=== PATIENT | male | born 1930 | race Caucasian/White ===

== ENCOUNTER 2019-01-18 02:14 | Inpatient (IN) | payer OTHER, MEDICARE ==
[~2019-01-18] VITALS: Ht 180.3 cm; Wt 77.6 kg
[2019-01-18] VITALS (12 sets, daily range): BP systolic 88–147; BP diastolic 54–78; Ht 180.3 cm; Wt 77.6 kg
--- NOTE | ~2019-01-18 | HEMODYNAMI ---
PATIENT:ARISTEO ACOSTA MEDICAL RECORD: [id number] : 34 [facility] ADMISSION DATE: 01/18/19 Generatedon:01/19/20199:36 Patient name: ARISTEO ACOSTA Patient #: [id number] SSN: : 1930 Date of study: 01/19/2019 Page: Of Hemodynamic Procedure Report Patient Data Patient Demographics Procedure consent was obtained First Name: ARISTEO Gender: Male Last Name: DAVE : 1930 [facility] Initial: NATHAN Age: 88 year(s) Patient #: [id number] Race: Unknown Additional ID: [id number] Contact details [address]: [address] [place] [address] State: [place] City: [place] Zip code: [address] Past Medical History Allergies Allergen Reaction Date Comments Reported Other allergy 01/19/2019 amiodorone Admission Admission Data Admission Date: 01/18/2019 Admission Time: 3:53 Admit Source: Emergency department Room #: D.2118 Lab Results Lab Result Date: 01/19/2019 Lab Result Time: 4:43 Biochemistry Name Units Result Min Max BUN mg/dl 32 --(----)-* 7 18 Creatinine mg/dl 1.3 --(---*)-- 0.6 1.3 CBC Name Units Result Min Max Hematocrit % 32.2 *-(----)-- 42 54 Hemoglobin g/dl 10.7 *-(----)-- 13.5 17.5 Procedure Procedure Types Cath Procedure Diagnostic Procedure LHC Coronaries only Procedure Description Procedure Date Procedure Date: 01/19/2019 Procedure Start Time: 9:20 Procedure End Time: 9:35 Procedure Staff Name Function Tristen Perez MD Performing Physician García Espino RT Monitor Marcella Rosales RT Scrub Bassem Rudolph RN Nurse Procedure Data Cath Procedure Fluoroscopy Diagnostic fluoroscopy Total fluoroscopy Time: 4 time: 4 min min Diagnostic fluoroscopy Total fluoroscopy dose: 568 dose: 568 mGy mGy Contrast Material Contrast Material Type Amount (ml) Isovue 300 72 Entry Location Entry Primary Successful Side Size Upsize Upsize Entry Closure Succes sful Closure Location (Fr) 1 (Fr) 2 (Fr) Remarks Device Remarks Femoral Right 5 Fr Exoseal artery Estimated blood loss: 5 ml Diagnostic catheters Device Type Used For End Catheter Placement MULTIPACK JL 4.0 5Fr Procedure catheter DIAGNOSTIC JL 5 5Fr Procedure catheter ([id number]) MULTIPACK 3DRC 5Fr Procedure catheter MULTIPACK Pigtail 5 Fr Procedure catheter Procedure Complications No complications Procedure Medications Medication Administration Route Dosage 0.9% NaCl I.V. 100 ml/hr Oxygen etCO2 Nasal cannula 2 l/min Heparin Flush Bag added to field 2 bags (1000units/500ml NS) Lidocaine 2% added to field 20 Versed I.V. 1 mg Fentanyl I.V. 50 mcg Hemodynamics Rest HGB: 10.7 (g/dl) Heart Rate: 56 (bpm) Snapshots Pre Cath Intra NCS Post Cath Vital Signs Time Heart Resp SPO2 etCO2 NIBP (mmHg) Rhythm Pain Sedation Rate (ipm) (%) (mmHg) Status Level (bpm) 9:03:19 103 28 94 0 134/76(120) A-Fib 0 (11) 10(A) , No pain 9:07:25 106 22 96 23 143/106(121) A-Fib 0 (11) 10(A) , No pain 9:11:36 118 19 94 17.1 126/99(110) A-Fib 0 (11) 10(A) , No pain 9:15:50 100 23 96 20.8 105/70(97) A-Fib 0 (11) 10(A) , No pain 9:19:52 111 33 96 0 122/85(114) A-Fib 0 (11) 10(A) , No pain 9:23:56 97 18 96 0 112/83(107) A-Fib 0 (11) 9(A) , No pain 9:27:58 119 19 96 20.8 115/94(112) A-Fib 0 (11) 9(A) , No pain 9:32:05 98 18 96 18.6 135/79(121) A-Fib 0 (11) 9(A) , No pain Medications Time Medication Route Dose Verified Delivered Reason Notes Effe ctiveness by by 9:08:30 0.9% NaCl I.V. 100 Bassem Bassem Per ml/hr Ronni Rudolph physician RN RN 9:08:41 Oxygen etCO2 2 Bassem Bassem for low 02 Nasal l/min Lorigan Lorigan sats cannula RN RN 9:08:52 Heparin Flush added 2 Bassem Bassem used for Bag to bags Lorigan Ronni procedure (1000units/500ml field RN RN NS) 9:09:02 Lidocaine 2% added 20ml Bassem Bassem for local to vial Lorigan Lorigan anesthetic field RN RN 9:18:01 Versed I.V. 1 mg Bassem Bassem for Lorigan Lorigan sedation RN RN 9:18:09 Fentanyl I.V. 50 Bassem Bassem for mcg Lorigan Lorigan sedation RN video control engineer Log Time Note 8:42:54 Informed consent obtained and on chart 8:42:57 Admit Source: Emergency department 8:43:09 Diagnostic Cath status Urgent 8:43:10 Time tracking: Regular hours (M-F 7:00 - 5:00) 8:43:14 Plan of Care:Hemodynamics will remain stable., Cardiac rhythm will remain stable., Comfort level will be maintained., Respiratory function will remain adequate., Patient/ family verbilizes understanding of procedure., Procedure tolerated without complication., Recovers from procedure without complications.. 8:43:46 H&P Date Dictated: 01/19/2019 Within 30 days and on chart.. 8:45:31 Bassem Rudolph RN sent for patient. Start room use. 8:54:31 Patient received from Med II to CCL 1 Alert and oriented. Tansferred to table in Supine position. 8:54:32 Warm blankets applied, and caleb hugger turned on for patient comfort. 8:54:33 Correct patient and procedure confirmed by team. 8:54:34 ECG and BP/O2 sat monitors applied to patient. 8:54:35 Pre-procedure instructions explained to patient. 8:54:35 Pre-op teaching completed and patient verbalized understanding. 8:54:37 Family in patients room. 8:54:38 Patient NPO since Midnight. 9:02:06 Vital chart was started 9:02:16 Full Disclosure recording started 9:08:30 0.9% NaCl 100 ml/hr I.V. was administered by Bassem Lorigan RN; Per physician; 9:08:41 Oxygen 2 l/min etCO2 Nasal cannula was administered by Bassem Rudolph RN; for low 02 sats; 9:08:52 Heparin Flush Bag (1000units/500ml NS) 2 bags added to field was administered by Bassem Rudolph RN; used for procedure; 9:09:02 Lidocaine 2% 20ml vial added to field was administered by Bassem Rudolph RN; for local anesthetic; 9:12:48 Baseline sample Acquired. 9:13:07 Rhythm: sinus rhythm , paced 9:13:20 Patient allergic to Other allergyamiodorone 9:13:22 Is the patient allergic to Iodine/contrast media? No. 9:13:29 Is patient on blood thinner?No 9:13:29 Patient diabetic? No. 9:13:32 Previous problem with sedation/anesthesia? No ? 9:13:33 Snore? Yes 9:13:34 Sleep apnea? Yes 9:13:35 Deviated septum? No 9:13:35 Opens mouth fully? Yes 9:13:36 Sticks out tongue? Yes 9:13:46 Airway obstruction? Yes Asthma/COPD 9:13:52 Dentures? Yes upper and lower in tight 9:13:58 Pre procedure: right posterior tibial pulse 1+ Palpable, but thready & weak; easily obliterated 9:14:16 Patient pain scale 0/10 ?. 9:14:23 IV patent on arrival in right antecubital with 0.9% NaCl at O. 9:14:59 Lab Result : BUN 32 mg/dl 9:14:59 Lab Result : Creatinine 1.3 mg/dl 9:14:59 Lab Result : Hemoglobin 10.7 g/dl 9:14:59 Lab Result : Hematocrit 32.2 % 9:16:17 Lab results completed and on chart. 9:16:20 Right groin area was prepped with chlora-prep and draped in sterile fashion 9:16:21 Alarms reviewed by R. N. 9:16:21 Sharps counted by scrub and verified by R.N. 9:16:24 Use device set Femoral Dx 9:16:24 ACIST Syringe (06053) opened to sterile field. 9:16:25 Bag Decanter (2002S) opened to sterile field. 9:16:25 Medline Cath Pack ([id number]) opened to sterile field. 9:16:26 ACIST Hand Control (60853) opened to sterile field. 9:16:27 ACIST Manifold (60238) opened to sterile field. 9:16:27 DIAGNOSTIC Multipack 5Fr catheter set ([id number]) opened to sterile field. 9:16:28 Tegaderm 4 x 4 (1626W) opened to sterile field. 9:16:29 SHEATH 5FR Humble (AJS359) opened to sterile field. 9:16:30 DIAGNOSTIC WIRE .035 260cm J wire (542980) opened to sterile field. 9:16:35 Physician arrived 9:16:35 --------ALL STOP TIME OUT------ 9:16:36 Final Timeout: patient, procedure, and site verified with staff and physician. All members of the team are in agreement. 9:16:37 Right groin site verified by team. 9:16:39 Maximum allowable Isovue 300 dose 300ml. Physician notified. (300ml for normal creatinines. For patients with creatinine of 1.7 or higher multiply weight(kg) x 5 divided by creatinine.) 9:16:42 Fire Safety Assessment: A--An alcohol-based skin anteseptic being used preoperatively., C--Open oxygen or nitrous oxide is being used., D--An ESU, laser, or fiber-optic light is being used. 9:16:45 Physical assessment completed. ASA score P 3 - A patient with severe systemic disease as per Tristen Perez MD. 9:16:47 Sedation plan: IV Moderate Sedation Medication:Versed, Fentanyl 9:18:01 Versed 1 mg I.V. was administered by Bassem Rudolph RN; for sedation; 9:18:09 Fentanyl 50 mcg I.V. was administered by Bassem Rudolph RN; for sedation; 9:20:02 Procedure started. 9:20:05 Local anesthetic to right femoral artery with Lidocaine 2% by Tristen Perez MD.INITIAL ACCESS ONLY 9:20:12 A 5 Fr sheath was inserted into the Right Femoral artery 9:22:03 A MULTIPACK JL 4.0 5Fr catheter was advanced over the wire and used for Procedure. 9:22:11 Catheter removed. unable to cannulate vessel. 9:22:19 A DIAGNOSTIC JL 5 5Fr catheter ([id number]) was advanced over the wire and used for Procedure. 9:22:46 Zero performed for pressure channel P1 9:24:15 LCA angiography performed. 9:27:00 Catheter exchanged over wire. 9:27:05 A MULTIPACK 3DRC 5Fr catheter was advanced over the wire and used for Procedure. 9:27:09 RCA angiography performed. 9:28:15 Catheter exchanged over wire. 9:28:20 A MULTIPACK Pigtail 5 Fr catheter was advanced over the wire and used for Procedure. 9:29:35 catheter removed, unable to cross valve. 9:29:36 Catheter removed. 9:29:38 EXOSEAL 5Fr (EX500) opened to sterile field. 9::46 Sheath removed intact; hemostasis achieved with Exoseal to the Right Femoral artery. 9:29:47 Procedure ended.(Physican Out) 9:31:26 Fluoroscopy time 04.00 minutes. 9:31:32 Flurop Dose total: 568 9:31:32 Fluoroscopy dose: 568 mGy 9:31:47 Contrast amount:Isovue 300 72ml. 9:31:48 Sharps counted by scrub and verified by R.N. 9:31:58 Insertion/operative site no bleeding no hematoma. 9:32:01 Post-op/insertion site Right Femoral artery dressed using a 4 x 4 and Tegaderm. 9:32:04 Post right femoral artery:stable, soft, clean and dry 9:33:26 Post Procedure Pulses reassessed and unchanged 9:33:36 Post-procedure physical assessment completed. ASA score P 3 - A patient with severe systemic disease as per Tristen Perez MD. 9:33:48 Post procedure rhythm: unchanged. 9:33:55 Estimated blood loss: 5 ml 9:33:56 Post procedure instruction explained to patient.Patient verbalizes understanding. 9:33:57 Patient needs reinforcement of post procedure teaching. 9:34:39 Procedure type changed to Cath procedure, Diagnostic procedure, LHC, Coronaries only 9:34:51 Procedure and supply charges have been captured, reviewed, submitted and are correct. 9:34:56 Procedure Complication : No complications 9:34:57 Vital chart was stopped 9:34:58 See physician's report for complete and final results. 9:34:59 Report given to PCU. 9:35:02 Patient transfered to PCU with Stretcher. 9:35:05 Procedure ended. 9:35:05 Full Disclosure recording stopped 9:35:07 End room use (Document Last) Device Usage Item Name Manufacture Quantity Catalog Hospital Part Current Minimal L ot# / Number Charge Number Stock Stock Serial# Code ACIST Acist 1 94987 [id number] 331518 869852 20 Syringe Medical (27230) Systems Inc Bag Microtek 1 652157 53548 080088 5 Decanter Medical Inc. () Medline Medline 1 [id number] 972683 35081 412880 5 Cath Pack ([id number]) ACIST Hand Acist 1 99732 767030 568416 847004 5 Control Medical (72949) Systems Inc ACIST Acist 1 41972 185437 044250 608599 5 Manifold Medical (20986) Systems Inc DIAGNOSTIC Cardinal 1 [id number] 295129 67434 443354 30 Multipack Health 5Fr catheter set (AL7922) Tegaderm 4 3M 1 1626W 388407 376277 363832 5 x 4 (1626W) SHEATH 5FR Terumo 1 [id number] 182957 076778 627504 5 Humble (DWV424) DIAGNOSTIC [facility] 1 993409 322234 621620 231180 30 WIRE .035 260cm J wire (787531) MULTIPACK Cardinal 1 867587 5 JL 4.0 5Fr Health catheter DIAGNOSTIC Cardinal 1 [id number] 015747 382652 490430 5 JL 5 5Fr Health catheter (465027X) MULTIPACK Cardinal 1 837995 5 3DRC 5Fr Health catheter MULTIPACK Cardinal 1 999907 5 Pigtail 5 Health Fr catheter EXOSEAL 5Fr Cardinal 1 EX500 740848 548665 068273 10 (EX500) Health Signature Audit [place] Stage Time Signature Unsigned Intra-Procedure 01/19/2019 García Espino 9:36:09 AM RT(R) Signatures Monitor : García Espino RT Signature : Date : Time : [facility] [address] [place], [place] [id number]
[2019-01-18] MEDS ORDERED: ASPIRIN EC81 M1 PO (02:49)
[2019-01-18] MEDS ORDERED: FLUTICASONE PRO16 GM NASAL (02:51)
[2019-01-18] MEDS ORDERED: LANOXIN125 MCG PO (02:51)
[2019-01-18] MEDS ORDERED: JANTOVEN4 MG PO (02:52)
[2019-01-18] MEDS ORDERED: ZOCOR20 MG PO (02:53)
[2019-01-18] MEDS ORDERED: LASIX40 MG PO (02:53)
[2019-01-18] MEDS ORDERED: ALDACTONE25 MG PO (02:54)
[2019-01-18] MEDS ORDERED: HYTRIN5 MG PO (02:55)
--- NOTE | 2019-01-18 03:00 | NUR ---
REPORT FROM TUSHAR ZAIDI
--- NOTE | 2019-01-18 03:05 | NUR ---
PT VERY UNCOMFORTABLE THIS TIME PT UNABLE TO SIT OR STAND PT STATES THAT HE IS ATTEMPTING TO URINATE INTO URINAL PT HAS URINATED 60ML CLEAR URINE AT THIS TIME PT STATES HE WAS GIVEN LASIX AND HASNT BEEN ABLE TO URINATE FULLY. MD AWARE. PT STATES HE NEEDS TO HAVE BOWEL MOVEMENT ALSO. PT HELPED TO BATHROOM ABLE TO AMBULATE WITHOUT ASSISTANCE PT HAD LARGE BM WITH BROWN STOOL. PT SOMEWHAT RELIEVED AT THIS TIME STATES THAT HE STILL CANT URINATE. PT ABLE LAY DOWN ON BED AT THIS TIME.
--- NOTE | 2019-01-18 03:30 | NUR ---
PT FEELING MUCH BETTER AT THIS TIME. PT GIVEN BLANKETS AT THIS TIME. PT DENIES FUTHER COMPLAINTS.
[2019-01-18 04:20] LABS: CREATINE KINASE 712 UL (21-232)
[2019-01-18 04:21] LABS: TROPONIN-I 18.638 ng/mL (0.000-0.060)
[2019-01-18 04:38] LABS: HEMATOCRIT 38.1 % (42.0-54.0); HEMOGLOBIN 12.7 g/dL (13.5-17.5); MCH 31.9 pg (26.0-34.0); MCHC 33.3 g/dL (31.0-37.0); MCV 95.7 fL (80.0-100.0); MEAN PLATELET VOLUME 12.8 fL (7.4-10.4); RBC 3.98 10x6/uL (4.20-6.10); RDW 12.9 % (11.5-14.5); WBC 13.9 10x3/uL (4.8-10.8)
[2019-01-18 04:42] LABS: INR 1.39 (0.85-1.17); PROTIME 16.5 SECONDS (11.6-15.0)
[2019-01-18 04:43] LABS: APTT 59.6 SECONDS (22.8-39.4)
--- NOTE | 2019-01-18 04:45 | NUR ---
PT NOTED TO HAVE BLOOD URINE IN OJEDA. MD FAGAN INFORMED DENIES NEEDING FURTHER ACTION.
--- NOTE | 2019-01-18 07:30 | NUR ---
RECEIVED PT IN BED EYES CLOSED RESP UNLABORED SKIN W/D NAD NOTED WILL CONTINUE TO MONITOR
[2019-01-18 09:39] LABS: CREATINE KINASE 732 UL (21-232)
[2019-01-18 09:40] LABS: TROPONIN-I 38.466 ng/mL (0.000-0.060)
[2019-01-18 14:30] LABS: CKMB 66.1 U/L (0.0-3.6); CREATINE KINASE 778 UL (21-232)
[2019-01-18 14:52] LABS: TROPONIN-I 35.853 ng/mL (0.000-0.060)
--- NOTE | 2019-01-18 16:46 | NUR ---
ATTEMPTED TO RETURN CALL TO [phone] NO ANSWER
--- NOTE | 2019-01-18 19:26 | NUR ---
RECVIEVED LAYING IN BED WITH EYES CLOSED. ANSWERS QUESTIONS WITH EYES CLOSED. OPENS EYE ON COMMAND. IV TO RIGHT FA WITH HEPRIN AT 8 ML HR. F/C INTACT WITH GROSS HEMATURIA IN BAG, TELEMETRY IN PLACE. DENIES ANY NEEDS AT THIS TIME.
[2019-01-18 20:31] LABS: CKMB 37.8 U/L (0.0-3.6); CREATINE KINASE 665 UL (21-232)
--- NOTE | 2019-01-18 20:37 | NUR ---
[id number] TO HAVE GROSS HEMATURIA. DRIED BLOOD TO PENIS AND SCROTUM CLEANED. APTT RECIEVED AND 37.[address] OSORIO WITH NEW ORDER TO D/C HEPRIN. PT AWARE OF NEW ORDER AND WILL NOTIFY POA.
--- NOTE | 2019-01-18 20:41 | NUR ---
NOTIFIED DTR (POA) OF NEW ORDER TO STOP HEPRIN. DTR STATES POA ONLY EFFECTIVE IF PT UNABLE TO MAKE HIS OWN DECISIONS AND HE CAN SIGN HIS CONSENTS.
[2019-01-18 20:53] LABS: TROPONIN-I 33.717 ng/mL (0.000-0.060)
[2019-01-19] VITALS: BP 110/49
[2019-01-19 00:39] LABS: HEMATOCRIT 31.9 % (42.0-54.0); HEMOGLOBIN 10.8 g/dL (13.5-17.5); MCHC 33.9 g/dL (31.0-37.0); MCV 94.4 fL (80.0-100.0); MEAN PLATELET VOLUME 12.3 fL (7.4-10.4); RBC 3.38 10x6/uL (4.20-6.10); RDW 12.8 % (11.5-14.5)
[2019-01-19 00:41] LABS: WBC 9.2 10x3/uL (4.8-10.8)
[2019-01-19 04:00] VITALS: BP 110/58
[2019-01-19 05:01] LABS: BASOPHILS 0.3 % (0-2); EOSINOPHILS 2.7 % (0-7); HEMATOCRIT 32.2 % (42.0-54.0); HEMOGLOBIN 10.7 g/dL (13.5-17.5); IMMATURE GRANULOCYTES 0.2 % (0-5); LYMPHOCYTES 14.2 % (15-50); MCH 31.3 pg (26.0-34.0); MCHC 33.2 g/dL (31.0-37.0); MCV 94.2 fL (80.0-100.0); MEAN PLATELET VOLUME 12.5 fL (7.4-10.4); NEUTROPHILS 68.6 % (40-80); PLATELET COUNT 100 10x3/uL (130-400); RBC 3.42 10x6/uL (4.20-6.10); RDW 12.8 % (11.5-14.5)
[2019-01-19 05:29] LABS: ALBUMIN 2.9 g/dL (3.4-5.0); ANION GAP 12.1 mmol/L (8-16); BILIRUBIN - TOTAL 0.68 mg/dL (0.2-1.3); CALCIUM 8.1 mg/dL (8.5-10.1); CARBON DIOXIDE 25.9 mmol/L (21.0-32.0); CREATININE - SERUM 1.3 mg/dL (0.6-1.3); MAGNESIUM - SERUM 1.9 mg/dL (1.8-2.4); PROTEIN - SERUM 6.7 g/dL (6.4-8.2)
[2019-01-19 08:07] VITALS: BP 94/44
--- NOTE | 2019-01-19 08:30 | NUR ---
PT TO CRIME SPECIALIST VIA BED
[2019-01-19 08:49] LABS: ANION GAP 13.5 mmol/L (8-16); CALCIUM 8.1 mg/dL (8.5-10.1); CARBON DIOXIDE 25.6 mmol/L (21.0-32.0); CREATININE - SERUM 1.3 mg/dL (0.6-1.3); POTASSIUM - SERUM 4.1 mmol/L (3.5-5.1)
--- NOTE | 2019-01-19 09:35 | NUR ---
RECEIVED PT BACK FROM SOLAR INSTALLATION HELPER VIA BED VSS PPPX4 DRSG TO RT GROIN C/D/I F/C IN PLACE NO URINE IN BAG ( BAG EMPTIED PRIOR TO HEART CATH 800 CC) WILL CONTINUE TO MONITOR
--- NOTE | 2019-01-19 11:00 | NUR ---
PT C/O OF PELVIC PAIN FEELING LIKE NEEDS TO PEE NO URINE IN OJEDA BAG OR LINE FLUSHED OJEDA WITH 50 CC STERILE H2O SEVERAL SMALL CLOTTS CATHETER PATENT WITH JOSE COLORED URINE
[2019-01-19 11:13] LABS: INR 1.39 (0.85-1.17); PROTIME 16.5 SECONDS (11.6-15.0)
[2019-01-19 11:47] VITALS: BP 133/89
--- NOTE | 2019-01-19 13:15 | NUR ---
RECEIVED PT TO ROOM 2113 FROM ER VIA W/C IN STABLE CONDITION AAOX4 RESP UNLABORED SKIN W/C COLOR WNL TELEMETRY APPLIED SINUS BRADICARDIA 58 DENIES ANY PAIN OR NEEDS AT THIS TIME
--- NOTE | 2019-01-19 13:15 | NUR ---
JOCELYNN VENEGAS APN REQUESTED OJEDA CATHETER BE DCD REMOVED FLUID FROM BULB PT STATRTED BLEEDING FROM PENIS DID NOT PULL CATHETER REPLACED FLUID IN BULB (10CC) BLEEDING STOPPED JOCELYNN VENEGAS APN NOTIFIED
[2019-01-19 15:42] VITALS: BP 121/86
--- NOTE | 2019-01-19 15:45 | NUR ---
RECEIVED PT IN BED AAOX4 RESP UNLABORED OJEDA CATHETER JOSE URINE IN BAG DENIES ANY NEEDS OR DISCOMFORT AT THIS TIME NAD NOTED
--- NOTE | 2019-01-19 19:51 | NUR ---
RECIEVED UP IN BED WITH EYES OPEN AND VISITORS AT BEDSIDE. ALERT AND ORIENTED X4. DSG TO RIGHT GROIN CDI. F/C PATENT WITH STRAW COLOR UNINE DRAINING TO BEDSIDE DRAINAGE BAG. UP AD LIZZETTE TO B/R. TELEMETRY IN PLACE. DENIES ANY NEEDS AT THIS TIME.
[2019-01-19 20:00] VITALS: BP 104/55
[2019-01-20] VITALS: BP 103/51
[2019-01-20 04:00] VITALS: BP 107/52
[2019-01-20 05:08] LABS: BASOPHILS 0.4 % (0-2); EOSINOPHILS 3.7 % (0-7); HEMATOCRIT 31.4 % (42.0-54.0); HEMOGLOBIN 10.4 g/dL (13.5-17.5); IMMATURE GRANULOCYTES 0.2 % (0-5); MCH 31.1 pg (26.0-34.0); MCHC 33.1 g/dL (31.0-37.0); MEAN PLATELET VOLUME 12.9 fL (7.4-10.4); MONOCYTES 15.5 % (2-11); NEUTROPHILS 66.2 % (40-80); PLATELET COUNT 105 10x3/uL (130-400); RBC 3.34 10x6/uL (4.20-6.10); RDW 12.6 % (11.5-14.5); WBC 8.2 10x3/uL (4.8-10.8)
[2019-01-20 05:39] LABS: ALBUMIN 2.8 g/dL (3.4-5.0); ANION GAP 13.9 mmol/L (8-16); BILIRUBIN - TOTAL 0.49 mg/dL (0.2-1.3); CALCIUM 7.9 mg/dL (8.5-10.1); CARBON DIOXIDE 25.2 mmol/L (21.0-32.0); CREATININE - SERUM 1.3 mg/dL (0.6-1.3); MAGNESIUM - SERUM 1.8 mg/dL (1.8-2.4); POTASSIUM - SERUM 4.1 mmol/L (3.5-5.1); PROTEIN - SERUM 6.7 g/dL (6.4-8.2)
--- NOTE | 2019-01-20 06:16 | NUR ---
STRONG PEDAL PULSE TO RIGHT FOOT. FEET ARE DRY AND SCALEY. MOISTURIZER APPLIED AND ASKED PT TO KEEP SOCKS OFF SO LOTION CAN ABSORB INTO SKIN. EDUCATED ON HOW TO USE CONTROLS ON BED. URINE DRAING TO BEDSIDE DRAINAGE BAG SLIGHTLY MICAELA.
[2019-01-20 07:56] VITALS: BP 113/61
--- NOTE | 2019-01-20 10:07 | CN ---
PATIENT NAME:ARISTEO ACOSTA MEDICAL RECORD: [id number] : 34 LOCATION:D. D.2118 ADMIT DATE: 01/18/19 ACCOUNT: [id number] CONSULTING PHYSICIAN: PETEY WHITTAKER MD REFERRING PHYSICIAN: ROSEANN CRUZ MD DATE OF CONSULTATION: 01/18/2019 HISTORY OF PRESENT ILLNESS: An 88-year-old gentleman with history of atrial fibrillation on Coumadin for CVA prophylaxis, severe episode of shortness of breath. On the day of admission, he was in [place], had chest tightness and pressure, marked dyspnea, did not feel any palpitations, although he does not chronically feel his atrial fibrillation in the interim. He has been attempted to be cardioverted in the past, has been unsuccessful. No underlying vascular disease to his knowledge. PAST MEDICAL HISTORY: Includes: 1. History of hypertension. 2. Atrial fibrillation. ALLERGIES: AMIODARONE. MEDICATIONS: Typically include Coumadin per scale, digoxin 0.25 every day, simvastatin 20 every day, Aldactone 25 every day. SOCIAL HISTORY: Lives in [place]. Typically takes care of all his ADLs. Nonsmoker, nondrinker. REVIEW OF SYSTEMS: The patient reports easy bruising but reports no swollen glands. The patient reports no fever, no night sweats, no significant weight gain, no significant weight loss. No significant exercise tolerance. The patient reports no dry eyes, no irritation, no vision change. Patient reports no difficulty hearing and no ear pain. Patient reports no frequent nose bleeds or nose and sinus problems. Patient reports on arm pain on exertion. No shortness of breath while lying down. No history of heart murmur. Patient reports no cough, no wheezing or coughing up blood. Patient reports no abdominal pain, no vomiting. Normal appetite. No diarrhea and not vomiting blood. No nausea and no constipation. Patient reports no incontinence. No difficulty urinating. No hematuria. No increased frequency. Patient reports no muscle aches. No weakness, no arthralgias, no back pain. No swelling of the extremities. Patient reports no abnormal mole, no jaundice, no rashes. Reports no loss of consciousness. No weakness and no numbness. No seizures, dizziness, or headaches. The patient reports no depression, no sleep disturbance, feeling safe in a relationship and no alcohol abuse. Patient reports on fatigue. Reports no runny nose or sinus pressure. No itching, no hives, and no frequent sneezing. PHYSICAL EXAMINATION: GENERAL: Pleasant gentleman, appears stated age. VITAL SIGNS: Pulse is 97, blood pressure 122/65. HEENT: Normocephalic, atraumatic. NECK: No bruits noted. HEART: Irregular, rate is controlled. S3 gallops noted. LUNGS: Prolonged respiratory phase. ABDOMEN: Soft, nontender. EXTREMITIES: Pulses 2+. No edema. CONSULT REPORT [id number] ARISTEO ACOSTA IMPRESSION: NSTEMI. We will let the INR trend down. Plan for angiography in the a.m. Further recommendations based on the above. TRANSINT:[id number] Voice Confirmation ID: [id number] DOCUMENT ID: [id number] PETEY WHITTAKER MD at 1007 CC: [id number] DICTATION DATE: 01/18/19 1004 CHUTE TENDER: 01/18/19 1329 ADM IN [facility] [address] [place] [address]
--- NOTE | 2019-01-20 10:07 | EC ---
PATIENT:ARISTEO ACOSTA DATE OF SERVICE: 01/18/19 SEX: M MEDICAL RECORD: [id number] DATE OF : 34 LOCATION:D.M2 D.211 AGE OF PATIENT: 88 ADMISSION DATE: 01/18/19 REFERRING PHYSICIAN: INTERPRETING PHYSICIAN: PETEY WHITTAKER MD ECHOCARDIOGRAM REPORT ECHO CHARGES 4 ECHO COMPLETE Date: 01/18/19 CLINICAL DIAGNOSIS: NON STRE AR HX OF PACER ECHOCARDIOGRAPHIC MEASUREMENTS (adult normal given) AC root (d.<3.7cm) 3.9 cm LV Septum d (<1.2 cm> 1.3 cm Valve Excursion 1.7 cm LV Septum (systole) 1.8 cm Left Atria (s.<4.0cm> 7.1 cm LVPW d(<1.2cm) 1.7 cm RV (d.<2.3cm) 4.7 cm LVPW (sytole) 1.8 cm LV diastole(<5.6CM) 5.5 cm MV E-F(>70mm/sec) cm LV systole 3.4 cm LVOT Diameter 2.0 cm MV exc.(>10mm) 1.5 cm Est.ejection fraction (50-75%) % DOPPLER: LVIT cm/sec A 31.0 cm/sec E 80.0 cm/sec LA cm/sec RVSP 57 mmHg LVOT 117 cm/sec AOP1/2T m/s Asc. Ao 423 cm/sec RVOT 82 cm/sec RA cm/sec PA 217 cm/sec AV Gradient Peak 71.42mmHg AV Mean 40.0 mmHg AV Area 0.90 cm MV Gradient Peak 7.17 mmHg MV Mean 2.49 mmHg MV Area cm COMMENTS: Security Delivery Specialist: 2 RUBÉN OWENS Solidworks Mechanical Designer: 3 Dr. Sims TAPE# PACS Pericardial Effusion N DATE OF SERVICE: Adequate 2-D echo, color-flow and spectral Doppler, and M-mode. LVH is present. LV internal dimensions are normal. LV is globally hypokinetic with reduced EF. Estimated EF is 30% to 35%. Aortic valve is calcified with restriction of leaflet motion. Peak gradient is 71 mmHg, putting this in severe range. Left atrium is markedly dilated at 7.1 cm. Mitral valve shows no prolapse. Dmvqxysq-sd-matpvm MR. Right-sided chambers are dilated. Severe TR. ECHOCARDIOGRAM REPORT [id number] ARISTEO ACOSTA TRANSINT:[id number] Voice Confirmation ID: [id number] DOCUMENT ID: [id number] PETEY WHITTAKER MD at 1007 CC: [id number] DICTATION DATE: 01/19/19939 SALES AND MARKETING ANALYST: 01/19/19 1634 ADM IN [facility] [id number] [place] [address]
--- NOTE | 2019-01-20 10:07 | OP ---
PATIENT NAME: ARISTEO ACOSTA MEDICAL RECORD: [id number] :34 LOCATION:D.M2 D.2118 ADMISSION DATE:01/18/19 SURGEON: PETEY WHITTAKER MD DATE OF OPERATION: 01/19/2019 PROCEDURE: Left heart catheterization, selective coronary angiography, right femoral artery approach. CATHETERS: A 5-Kiswahili sheath, 5/4 left and right Chip. The procedure was well tolerated. The patient was returned to the marin. Sheath was removed. ExoSeal device was placed. FINDINGS: Left ventriculography not performed. Please note EF 20% to 25% on echo with critical , valve area of 0.8. CORONARY ANATOMY: LEFT MAIN: Left main has ostial stenosis of about 40%. LAD: LAD has severe diffuse disease, greatest being probably 90%. CIRCUMFLEX: Occluded proximally. RIGHT CORONARY ARTERY: It has proximal stenosis and severe diffuse disease in its midportion. IMPRESSION: Critical , cardiomyopathy, severe coronary artery disease. At this point in time, the patient is not an interventional candidate. Given age and extent of disease including aortic stenosis, I do not feel he is a candidate for valve or CABG. Medical management at this point. TRANSINT:[id number] Voice Confirmation ID: [id number] DOCUMENT ID: [id number] PETEY WHITTAKER MD at 1007 CC: [id number] DICTATION DATE: 01/19/19 0937 ANIMAL TECHNICIAN: 01/19/19 1631 ADM IN [facility] [address] [place] [address]
--- NOTE | 2019-01-20 10:14 | NUR ---
TELEMETRY CAF WITH PACED BEATS NOTED. RESP UL ON . UD CONT. PER RT. OJEDA CATH INTACT WITH BLOOD TINGED OP NOTED. WILL MONITOR.
--- NOTE | 2019-01-20 11:06 | NUR ---
AMBULATES WITH PT ASSIST. UP TO CHAIR WITH CALL LIGHT IN REACH. C/O PAIN TO RIGHT FOOT. STATES HE FEELS LIKE HE HAS SPRANGED IT. JOCELYNN SERRATO.
[2019-01-20 11:41] VITALS: BP 105/52
--- NOTE | 2019-01-20 13:35 | NUR ---
OJEDA CATH DCD WOTH 1100CC URINE OP AND 10CC BULB. WILL MONITOR VOICD.
--- NOTE | 2019-01-20 14:28 | NUR ---
HAS VOIDED CLEAR YELLOW URINE OP.
[2019-01-20 16:21] VITALS: BP 137/52
[2019-01-20] MEDS ORDERED: COREG 3.1253.125 MG PO (17:00)
--- NOTE | 2019-01-20 17:03 | NUR ---
POST VOID BLADDER SCAN WITH 0 RESIDUAL.
--- NOTE | 2019-01-20 17:12 | MORECARE ---
CASE MANAGEMENT DISCHARGE SUMMARY PATIENT: ARISTEO ACOSTA UNIT: [id number] ADM DATE: 01/18/19 AGE: 88 : 32 SEX: M ROOM/BED: D.2118 AUTHOR: AUGUSTUS HWANG PHYSICIAN: REFERRING PHYSICIAN: ROSEANN CRUZ MD DATE OF SERVICE: 01/20/19 Discharge Plan Patient Name: ARISTEO ACOSTA [facility] [facility] 1930 Planned Disposition: Home with Home Health Anticipated Discharge Date: 01/20/19 Discharge Date: Expected LOS: 2 Initial Reviewer: [id number] Initial Review Date: 01/18/2019 Generated: 01/20/19 6:12 pm External Providers External Provider: Babs Next Contact Date: 01/20/2019 Service Request Date: Service Type: Resolution: Reviewer: Comments: Coverage Notice Reviewer: KENNETH Esteban Notice Issued Date-Time: 01/20/2019 16:25 Notice Type: Patient Choice Letter Notice Delivered To: Patient Relationship to Patient: Screen Printing Inspector Name: Delivery Method: HAND - Hand Delivered Nehal Days: Prior Verbal Notification: Recipient Understood Notice: Recipient Signature: Med Rec Note Co-signed by Attending: Coverage Notice Comment: RICO Reviewer: KENNETH Esteban Notice Issued Date-Time: 01/20/2019 16:25 Notice Type: IM Discharge Notice Notice Delivered To: Patient Relationship to Patient: Screen Printing Inspector Name: Delivery Method: HAND - Hand Delivered Nehal Days: Prior Verbal Notification: Recipient Understood Notice: Yes Recipient Signature: Yes Med Rec Note Co-signed by Attending: Coverage Notice Comment: Patient Name: ARISTEO ACOSTA Page [id number] at 1712 All edits/amendments must be made on the electronic document DICTATION DATE: 01/20/191711 PEST CONTROLLER: REBEKAH 01/20/191711 RPT#: [id number] DC DATE: STATUS: ADM IN [facility] [address] [place] [address] END OF REPORT
--- NOTE | 2019-01-20 17:20 | MORECARE ---
CASE MANAGEMENT DISCHARGE SUMMARY PATIENT: ARISTEO ACOSTA UNIT: [id number] ADM DATE: 01/18/19 AGE: 88 : 32 SEX: M ROOM/BED: D.2118 AUTHOR: ERI,DOC PHYSICIAN: REFERRING PHYSICIAN: ROSEANN CRUZ MD DATE OF SERVICE: 01/20/19 Discharge Plan Patient Name: ARISTEO ACOSTA Facility: [facility]:[place] : 1930 Planned Disposition: Home with Home Health Anticipated Discharge Date: 01/20/19 Discharge Date: Expected LOS: 2 Initial Reviewer: KENNETH Initial Review Date: 01/18/2019 Generated: 01/20/19 6:19 pm DCPIA - Discharge Planning Initial Assessment Updated by KENNETH: Cj Esteban on 01/20/19 5:13 pm * Is the patient Alert and Oriented? Yes * How many steps to enter\exit or inside your home? 0-0 / 3-I * PCP DR. MARIOLA SILVA, [place], [place] * Pharmacy [facility] - [place], [place] * Preadmission Environment Home Alone * ADLs Independent * Equipment CPAP Walker * Other Equipment MEDICAL EQUIPMENT PROVIDER- [facility], [place], [place] * List name and contact numbers for known caregivers / representatives who currently or will assist patient after discharge: OSCAR HANLEY, DTR, * Verbal permission to speak to the caregivers and representatives has been obtained from the patient. Yes * Community resources currently utilized Home Health * Please name any agencies selected above. [facility] * Additional services required to return to the preadmission environment? No * Can the patient safely return to the preadmission environment? Yes * Has this patient been hospitalized within the prior 30 days at any hospital? No Coverage Notice Reviewer: [id number] Esteban Notice Issued Date-Time: 01/20/2019 16:25 Notice Type: Patient Choice Letter Notice Delivered To: Patient Relationship to Patient: Wearing Apparel Presser Name: Delivery Method: HAND - Hand Delivered Nehal Days: Prior Verbal Notification: Recipient Understood Notice: Recipient Signature: Med Rec Note Co-signed by Attending: Coverage Notice Comment: RICO Reviewer: [id number] Esteban Notice Issued Date-Time: 01/20/2019 16:25 Notice Type: IM Discharge Notice Notice Delivered To: Patient Relationship to Patient: Wearing Apparel Presser Name: Delivery Method: HAND - Hand Delivered Nehal Days: Prior Verbal Notification: Recipient Understood Notice: Yes Recipient Signature: Yes Med Rec Note Co-signed by Attending: Coverage Notice Comment: Last DP export: 01/20/19 4:12 p Patient Name: ARISTEO ACOSTA Page [id number] at 1720 All edits/amendments must be made on the electronic document DICTATION DATE: 01/20/191718 DEFENSIVE DRIVING INSTRUCTOR: REBEKAH 01/20/191718 RPT#: [id number] DC DATE: STATUS: ADM IN [facility] [address] [place] [address] END OF REPORT
--- NOTE | 2019-01-20 17:27 | MORECARE ---
CASE MANAGEMENT DISCHARGE SUMMARY PATIENT: ARISTEO ACOSTA UNIT: [id number] ADM DATE: 01/18/19 AGE: 88 : 32 SEX: M ROOM/BED: D.2692 AUTHOR: ERI,DOC PHYSICIAN: REFERRING PHYSICIAN: ROSEANN CRUZ MD DATE OF SERVICE: 01/20/19 Discharge Plan Patient Name: ARISTEO ACOSTA Facility: [facility]:[place] : 1930 Planned Disposition: Home with Home Health Anticipated Discharge Date: 01/20/19 Discharge Date: Expected LOS: 2 Initial Reviewer: [email or web address] Initial Review Date: 01/18/2019 Generated: 01/20/19 6:27 pm Comments DCP- Discharge Planning Updated by [id number]: Cj Esteban on 01/20/19 4:[address] Patient Name: ARISTEO ACOSTA Encounter No: [id number] : 1930 Primary Insurance: [employer] Anticipated DC Date: 01-20-2019 Planned Disposition: Home with Home Health External Planned Provider: [place], [place] DISCHARGE PLANNING NOTE: CM SPOKE TO EDU CRUZ WHO INFORMED CM THAT PT WILL NEED WALKER TO GO HOME TODAY. CM MET WITH PTAND DAUGHTER IN ROOM TO DISCUSS DISCHARGE PLANNING AND NEEDS. ARISTEO ACOSTA provided verbal consent to discuss current and ongoing needs with/in the presence of: DAUGHTEROSCAR. PT REPORTS LIVING AT HOME INDEPENDENTLY AND ALONE. PT HAS CPAP FROM [facility] AND A STANDARD WALKER HE BORROWED FROM A FRIEND. PT HAS NO MEDICAL EQUIPMENT PROVIDER PREFERNECE FOR WALKER HERE. CHOICE COMPLETED FOR [facility] [place]. PT HAS LONE [facility] FOR N[facility]SING OUT OF [place]. PT HAS NO CONTACT INFORMATION FOR HOME HEALTH AND WILL NOTIFY THEM WHEN HE GETS HOME. PT HAS NO OTHER NO OUTSIDE SERVICES ASSISTING IN THE HOME. CM DISCUSSED AVAILABILITY OF HOME HEALTH, REHAB SERVICES AND MEDICAL EQUIPMENT. PT DENIES DISCHARGE NEEDS OTHER THAN WALKER, REPORTS HIS DAUGHTER WILL PICK HIM UP TODAY FOR DISCHARGE HOME. IMPORTANT MESSAGE FROM MEDICARE PROVIDED AND EXPLAINED. CM CALLED [facility] [place], , SPOKE TO GHISLAINE BILLY WALKER ORDER. CM FAXED ORDERS TO [facility] [place] AT [phone]. [facility] [place] TO ARRANGE WALKER DELIVERY TO HOPITAL ROOM TODAY. PARTY PLANNER NURSE NOTIFIED. Cj Esteban, CASE MANAAGMENT DCPIA - Discharge Planning Initial Assessment Updated by [id number]: Cj Esteban on 01/20/19 5:13 pm * Is the patient Alert and Oriented? Yes * How many steps to enter\exit or inside your home? 0-0 / 3-I * PCP DR. MARIOLA SILVA, [place], [place] * Pharmacy [facility] - [place], [place] * Preadmission Environment Home Alone * ADLs Independent * Equipment CPAP Walker * Other Equipment MEDICAL EQUIPMENT PROVIDER- [facility], [place], [place] * List name and contact numbers for known caregivers / representatives who currently or will assist patient after discharge: OSCAR HANLEY DTR, * Verbal permission to speak to the caregivers and representatives has been obtained from the patient. Yes * Community resources currently utilized Home Health * Please name any agencies selected above. [facility] * Additional services required to return to the preadmission environment? No * Can the patient safely return to the preadmission environment? Yes * Has this patient been hospitalized within the prior 30 days at any hospital? No Coverage Notice Reviewer: [id number] Alex Esteban Notice Issued Date-Time: 01/20/2019 16:25 Notice Type: Patient Choice Letter Notice Delivered To: Patient Relationship to Patient: Glue Mounter Operator Name: Delivery Method: HAND - Hand Delivered Nehal Days: Prior Verbal Notification: Recipient Understood Notice: Recipient Signature: Med Rec Note Co-signed by Attending: Coverage Notice Comment: RICO Reviewer: [id number] Alex Esteban Notice Issued Date-Time: 01/20/2019 16:25 Notice Type: IM Discharge Notice Notice Delivered To: Patient Relationship to Patient: Glue Mounter Operator Name: Delivery Method: HAND - Hand Delivered Nehal Days: Prior Verbal Notification: Recipient Understood Notice: Yes Recipient Signature: Yes Med Rec Note Co-signed by Attending: Coverage Notice Comment: Last DP export: 01/20/19 4:19 p Patient Name: ARISTEO ACOSTA Page [id number] at 3170 All edits/amendments must be made on the electronic document DICTATION DATE: 01/20/191726 INTERNAL MEDICINE DOCTOR: REBEKAH 01/20/191726 RPT#: [id number] DC DATE: STATUS: ADM IN [facility] [address] [place] [address] END OF REPORT
--- NOTE | 2019-01-20 17:44 | NUR ---
IV AND TELEMETRY DCD. DC PLANS GIVEN. UNDERSTANDING VOICED. ESCORTED TO CAR BY W/C.
== END 2019-01-20 17:50 | disposition home health service (06) | DRG 281 ==
LOC: D.ER 02:14 → D.M2 03:53
PROVIDERS: Emergency Medicine; Family Medicine; Internal Medicine Interventional Cardiology; Internal Medicine Nephrology; ADMIT Emergency Medicine; ATTEND Emergency Medicine
PROC: B2151ZZ Fluoroscopy of Left Heart using Low Osmolar Contrast (ICD-10-PCS; 2019-01-19)
PROC: 4A023N7 Measurement of Cardiac Sampling and Pressure, Left Heart, Percutaneous Approach (ICD-10-PCS; 2019-01-19)
PROC: B2111ZZ Fluoroscopy of Multiple Coronary Arteries using Low Osmolar Contrast (ICD-10-PCS; principal; 2019-01-19 08:45)
DX: I21.4 Non-ST elevation (NSTEMI) myocardial infarction (principal); I42.9 Cardiomyopathy, unspecified; D68.32 Hemorrhagic disorder due to extrinsic circulating anticoagulants; I35.0 Nonrheumatic aortic (valve) stenosis; I25.10 Atherosclerotic heart disease of native coronary artery without angina pectoris; I11.0 Hypertensive heart disease with heart failure; I50.9 Heart failure, unspecified; I48.91 Unspecified atrial fibrillation; J43.9 Emphysema, unspecified; D64.9 Anemia, unspecified; N40.0 Benign prostatic hyperplasia without lower urinary tract symptoms; R31.9 Hematuria, unspecified; T83.098A Other mechanical complication of other urinary catheter, initial encounter; Y84.9 Medical procedure, unspecified as the cause of abnormal reaction of the patient, or of later complication, without mention of misadventure at the time of the procedure